=== PATIENT | male | born 1935 | race Two or more races ===

== ENCOUNTER 2019-02-10 17:26 | Emergency (ER) | payer MEDICARE ==
[~2019-02-10] VITALS: Ht 188 cm; Wt 85.3 kg
[~2019-02-10 17:26] MED LIST: ACET-868 PO; AMLO2.5T2 PO; CALC625T PO; CITA20TA19 PO; CLOP75TA15 PO; DIGO0.12 PO; MIRT15TA3 PO; OMEG-9; PANT40SU PO; TOLT1TAB2 PO; UBID200C35 PO
--- NOTE | 2019-02-10 17:40 | NUR ---
[facility]AN [facility] FOR [facility]/V; PT AAOX2-3, PT ON MONITOR, VSS, NAD NOTED, PT TO BED 6, PENDING MD TAYLOR
[2019-02-10] MEDS ORDERED: ONDANSETRON HCL/PF 4 MG/2 ML VIAL IVP ONE (18:00)
[2019-02-10] MEDS ORDERED: ONDANSETRON HCL/PF 4 MG/2 ML VIAL ONE (18:00)
[2019-02-10] MEDS ORDERED: IV NS 0.9% 1,000 ML BAG IV ONE (18:00)
[2019-02-10 18:18] LABS: BASOPHILS % (AUTO) 0.2 % (0.0-2.0); EOSINOPHILS % (AUTO) 0.9 % (0.0-6.0); HEMATOCRIT 46 % (39-51); HEMOGLOBIN 15.2 g/dL (13.5-17.5); LYMPHOCYTES # (AUTO) 1.3 /CMM (0.8-4.8); LYMPHOCYTES % (AUTO) 7.6 % (20.0-44.0); MEAN CORPUSCULAR HGB CONC 33 g/dl (31.0-36.0); MEAN CORPUSCULAR VOLUME 94 fL (80-96); MONOCYTES % (AUTO) 5.8 % (2.0-12.0); NEUTROPHILS # (AUTO) 14.7 /CMM (1.8-8.9); NEUTROPHILS % (AUTO) 85.5 % (43.0-81.0); PLATELET COUNT (AUTO) 306 /CMM (150-450); RED BLOOD CELL COUNT(AUTO) 4.91 MIL/uL (4.5-6.0); WHITE BLOOD COUNT (AUTO) 17.2 K/uL (4.3-11.0)
[2019-02-10 18:30] LABS: CALCIUM, SERUM 9.7 mg/dL (8.5-10.1); CARBON DIOXIDE 24 mmol/L (21-32); CHLORIDE 102 mmol/L (98-107); CREATININE 1.9 mg/dL (0.6-1.3); GLUCOSE 178 mg/dL (74-106); POTASSIUM 4.3 mmol/L (3.5-5.1); SODIUM SERUM 137 mmol/L (136-145); UREA NITROGEN, BLOOD 23 mg/dL (7-18)
[2019-02-10 18:38] LABS: ALANINE AMINOTRANSFERASE 24 U/L (12-78); ALBUMIN 3.5 g/dL (3.4-5.0); ALKALINE PHOSPHATASE 192 U/L (46-116); ASPARTATE AMINOTRANSFERASE 28 U/L (15-37); BILIRUBIN,DIRECT 0.1 mg/dL (0.0-0.2); BILIRUBIN,TOTAL 0.3 mg/dL (0.2-1.0); LIPASE 97 U/L (73-393); TOTAL PROTEIN, SERUM 8.3 g/dL (6.4-8.2)
[2019-02-10] MEDS ORDERED: LISI-607 PO (18:45)
[2019-02-10] MEDS ORDERED: TRAZ-182 PO (18:45)
--- NOTE | 2019-02-10 19:16 | NUR ---
MARIIA () CONTACT INFORMATION:
--- NOTE | 2019-02-10 19:30 | NUR ---
PT UNABLE TO GIVE URINE SAMPLE AT THIS TIME
--- NOTE | 2019-02-10 19:40 | NUR ---
URINE COLLECTED AND SENT TO LAB
[2019-02-10 19:56] LABS: APPEARANCE,URINE Clear (CLEAR); BILIRUBIN,URINE Negative (NEGATIVE); BLOOD, URINE Large Ery/uL (NEGATIVE); COLOR,URINE Yellow (YELLOW); KETONES,URINE Negative (NEGATIVE); LEUKOCYTE ESTERASE ,URINE Trace (NEGATIVE); NITRITE, URINE Negative (NEGATIVE); PH,URINE 5.5 (5.0-8.0); PROTEIN,URINE 30 mg/dl (NEGATIVE); UGLUCOSE >=1000 mg/dL (NEGATIVE); UROBILINOGEN,URINE 0.2 EU/dL (0.2)
[2019-02-10 20:12] LABS: BACTERIA,URINE Few /HPF (None Seen); RBC,URINE 21-50 /HPF (0-2); SQUAMOUS EPITHELIAL CELL,UR Few /HPF (None Seen)
--- NOTE | 2019-02-10 20:52 | NUR ---
PT TO RETURN TO [facility] CALLED [facility] FOR TRANSPORTATION. ETA: [phone], TRIP NUMBER: [id number]
--- NOTE | 2019-02-10 20:56 | NUR ---
REPORT GIVEN TO HERSON AT [facility] FOR REPORT
--- NOTE | 2019-02-10 21:27 | NUR ---
PT TRANSPORTED BACK TO [facility], PT LEFT IN STABLE CONDITION, [facility] NAD NOTED, PT LEFT VIA PRIVATE AMBULACNE, REPORT GIVEN TO STAFF.
[2019-02-10 21:28] VITALS: BP 149/70
== END 2019-02-10 21:29 | disposition home or self-care (01) ==
LOC: ER 17:26
DX: R11.2 Nausea with vomiting, unspecified (principal); R10.13 Epigastric pain; I10 Essential (primary) hypertension; F03.90 Unspecified dementia, unspecified severity, without behavioral disturbance, psychotic disturbance, mood disturbance, and anxiety; Z86.73 Personal history of transient ischemic attack (TIA), and cerebral infarction without residual deficits; Z79.899 Other long term (current) drug therapy
CPT/HCPCS: 36415; 74176; 80048; 80076; 81001; 83690; 85025; 96361; 96374; 99284; J2405; J7030; 81000-TC

== ENCOUNTER 2019-08-07 13:19 | Inpatient (IN) | payer MEDICARE ==
[~2019-08-07] VITALS: Ht 188 cm; Wt 81.6 kg
[~2019-08-07 13:19] MED LIST changes: -AMLO2.5T2 PO; -CALC625T PO; +LISI-607 PO; -OMEG-9; -PANT40SU PO; -TOLT1TAB2 PO; +TRAZ-182 PO; -UBID200C35 PO
--- NOTE | 2019-08-07 13:28 | NUR ---
PATIENT BIBRA FROM [facility], C/O ABDOMINAL PAIN AND VOMITING STARTED THIS AM. PATIENT AWAKE. A/O X1. NO ACUTE DISTRESS. WILL CONTINUE TO MONITOR ACCORDINGLY
[2019-08-07 13:41] LABS: BASOPHILS % (AUTO) 0.4 % (0.0-2.0); EOSINOPHILS % (AUTO) 1.1 % (0.0-6.0); HEMATOCRIT 39 % (39-51); HEMOGLOBIN 12.8 g/dL (13.5-17.5); LYMPHOCYTES # (AUTO) 1.3 /CMM (0.8-4.8); LYMPHOCYTES % (AUTO) 14.9 % (20.0-44.0); MEAN CORPUSCULAR HGB CONC 33 g/dl (31.0-36.0); MEAN CORPUSCULAR VOLUME 93 fL (80-96); MONOCYTES # (AUTO) 0.5 /CMM (0.1-1.30); MONOCYTES % (AUTO) 5.9 % (2.0-12.0); NEUTROPHILS # (AUTO) 6.9 /CMM (1.8-8.9); NEUTROPHILS % (AUTO) 77.7 % (43.0-81.0); PLATELET COUNT (AUTO) 472 /CMM (150-450); RED BLOOD CELL COUNT(AUTO) 4.15 MIL/uL (4.5-6.0); WHITE BLOOD COUNT (AUTO) 8.9 K/uL (4.3-11.0)
[2019-08-07] MEDS ORDERED: UBID100C13 PO (13:55)
[2019-08-07] MEDS ORDERED: CANA100T PO (13:55)
[2019-08-07] MEDS ORDERED: EMPA10TA PO (13:55)
[2019-08-07] MEDS ORDERED: OMEG1CAP PO (13:55)
[2019-08-07] MEDS ORDERED: CLOT15CR63 TP (13:55)
[2019-08-07] MEDS ORDERED: SENN-168 PO (13:55)
[2019-08-07] MEDS ORDERED: CALC625T PO (13:55)
[2019-08-07 13:59] LABS: CALCIUM, SERUM 9.7 mg/dL (8.5-10.1); CARBON DIOXIDE 22 mmol/L (21-32); CHLORIDE 97 mmol/L (98-107); CREATININE 2.9 mg/dL (0.6-1.3); GLUCOSE 199 mg/dL (74-106); POTASSIUM 5.2 mmol/L (3.5-5.1); SODIUM SERUM 132 mmol/L (136-145); UREA NITROGEN, BLOOD 64 mg/dL (7-18)
[2019-08-07] MEDS ORDERED: IV NS 0.9% 1,000 ML BAG IV ONE ×3 (14:00→14:30)
[2019-08-07] MEDS ORDERED: ACETAMINOPHEN ES 500 MG TABLET PO ONE (14:00)
[2019-08-07] MEDS ORDERED: ACETAMINOPHEN ES 500 MG TABLET ONE (14:03)
[2019-08-07 14:13] LABS: ALANINE AMINOTRANSFERASE 35 U/L (12-78); ALBUMIN 2.9 g/dL (3.4-5.0); ALKALINE PHOSPHATASE 136 U/L (46-116); ASPARTATE AMINOTRANSFERASE 28 U/L (15-37); BILIRUBIN,DIRECT 0.1 mg/dL (0.0-0.2); BILIRUBIN,TOTAL 0.3 mg/dL (0.2-1.0); LIPASE 179 U/L (73-393); TOTAL PROTEIN, SERUM 8.8 g/dL (6.4-8.2)
[2019-08-07 14:26] LABS: APPEARANCE,URINE Cloudy (CLEAR); BILIRUBIN,URINE Negative (NEGATIVE); BLOOD, URINE Large Ery/uL (NEGATIVE); COLOR,URINE Amber (YELLOW); KETONES,URINE Negative (NEGATIVE); LEUKOCYTE ESTERASE ,URINE Large (NEGATIVE); NITRITE, URINE Negative (NEGATIVE); PROTEIN,URINE >=300 mg/dl (NEGATIVE); UGLUCOSE 500 MG/DL mg/dL (NEGATIVE); UROBILINOGEN,URINE 0.2 EU/dL (0.2)
[2019-08-07] MEDS ORDERED: IV NS 0.9% 500 ML BAG IV ONE (14:30)
[2019-08-07 14:50] LABS: BACTERIA,URINE Few /HPF (None Seen); RBC,URINE TOO NUMEROUS TO COUN /HPF (0-2); SQUAMOUS EPITHELIAL CELL,UR Few /HPF (None Seen); WBC,URINE 81-100 /HPF (0-3)
--- NOTE | 2019-08-07 15:10 | NUR ---
CALLED NURSING SUP FOR TELE BED.
--- NOTE | 2019-08-07 15:13 | NUR ---
VERIFIED TOTAL IV NS ORDER WITH DR RAMOS. VERBALIZED TOTAL NS ONLY 2500cc. NOTED AND CARRIED OUT. WILL CONTINUE TO MONITOR
[2019-08-07] MEDS ORDERED: PIPERACILLIN /TAZOBACTAM 3.375 G in IV D5W 50 ML IV ONE (15:30)
--- NOTE | 2019-08-07 15:37 | NUR ---
NURSING SUP GAVE [phone].
[2019-08-07] MEDS ORDERED: IV NS 0.9% 1,000 ML IV PRN (15:38)
[2019-08-07] MEDS ORDERED: TEMAZEPAM 15 MG CAPSULE PO PRN (16:00)
[2019-08-07] MEDS ORDERED: HYDROCODONE/APAP 5/325MG 1 EACH TABLET PO PRN (16:00)
[2019-08-07] MEDS ORDERED: IBUPROFEN 600 MG TABLET PO ONE (16:00)
[2019-08-07] MEDS ORDERED: MORPHINE SULFATE INJ 2 MG/ML DISP.SYRIN IV PRN (16:00)
[2019-08-07] MEDS ORDERED: DEXTROSE 50%-WATER 50 ML DISP.SYRIN IV PRN (16:00)
[2019-08-07] MEDS ORDERED: PANTOPRAZOLE 40 MG VIAL IV ONE (16:00)
[2019-08-07] MEDS ORDERED: ACETAMINOPHEN 325 MG TABLET PO PRN (16:00)
[2019-08-07] MEDS ORDERED: ONDANSETRON HCL/PF 4 MG/2 ML VIAL IVP PRN (16:00)
--- NOTE | 2019-08-07 16:26 | NUR ---
REPORT GIVEN TO ELIANE FITZPATRICK FOR [facility]
--- NOTE | 2019-08-07 16:38 | NUR ---
PATIENT TRANSFERRED TO [facility] VIA ACLS PROTOCOL. RECEIVING RN AT BEDSIDE. PATIENT TOLERATED WELL. NO ACUTE DISTRESS. NO FACIAL GRIMACE NOTED.
--- NOTE | 2019-08-07 16:55 | NUR ---
RN NOTES Patient received on room air, no sob noted, patient denies pain at this time. No wounds noted at this time. L FA 18 gauge H/L. Bed at the lowest setting, call light within reach, side rails up x2.
[2019-08-07 17:00] VITALS: BP 144/87
[2019-08-07] MEDS: BLOOD SUGAR DIAGNOSTIC 1 EACH STRIP IN SCH ×2 (17:10→22:32)
--- NOTE | 2019-08-07 18:53 | NUR ---
RN CLOSING NOTES Patient remains on room air, no sob noted, patient shows no s/s of pain at this time. Patient on tele at this time. Cardiac diet with 18 FA IV NS@ 100 ml pre hour. urine cx and bloox cx pending. Wilson inserted and is draining well. Bed at the lowest setting, call light within reach, side rails up x2. Will give report to NOC RN for [facility] bedside.
[2019-08-07] MEDS: INSULIN REGULAR, HUMAN 100 UNIT/ML 3 ML VIAL SQ PRN ×2 (19:11→19:19)
--- NOTE | 2019-08-07 19:55 | NUR ---
PRODUCTION GRIP NOTES RECEIVED PATIENT AWAKE IN BED, ALERT ORIENTEDX3, SAFETY MEASURES INPLACE, ASPIRATION PRECAUTION OBSERVED, CALL LIGHT WITHIN EASY REACH, IV ACCESS INTACT AND PATENT IV FLUID INFUSING WELL, ALL NEEDS ANTICIPATED, WILL MONITOR ACCORDINGLY.
[2019-08-07 20:00] VITALS: BP 103/65
[2019-08-07] MEDS ORDERED: PIPERACILLIN /TAZOBACTAM 2.25 G in IV D5W 50 ML IV SCH (21:00)
[2019-08-07] MEDS: MIRTAZAPINE SOLUTAB 15 MG/UDTABLET TAB.RAPDIS PO SCH (22:31)
[2019-08-07] MEDS: TRAZODONE 50 MG TABLET PO SCH (22:31)
[2019-08-08] VITALS (7 sets, daily range): BP systolic 94–121; BP diastolic 57–76
[2019-08-08] MEDS ORDERED: PIPERACILLIN /TAZOBACTAM 3.375 G in IV D5W 100 ML IV SCH ×2
[2019-08-08] MEDS: PIPERACILLIN /TAZOBACTAM 3.375 G in IV D5W 100 ML IV SCH ×3 (00:39→17:16)
--- NOTE | 2019-08-08 06:21 | NUR ---
MICROARRAY SPECIALIST NOTES ALL NEEDS ATTENDED AND MET, SAFETY MEASURES IN PLACE, ASPIRATION PRECAUTION EMPHASIZED,IV ACCESS INTACT AND PATENT, GIL INTACT DRAINING WELL. YELLOW URINE OUTPUT NOTED, WILL ENDORSE TO AM NURSE FOR CONTINUITY OF CARE;.
[2019-08-08 06:53] LABS: BASOPHILS % (AUTO) 0.5 % (0.0-2.0); EOSINOPHILS % (AUTO) 1.4 % (0.0-6.0); HEMATOCRIT 31 % (39-51); HEMOGLOBIN 10.6 g/dL (13.5-17.5); LYMPHOCYTES # (AUTO) 1.6 /CMM (0.8-4.8); LYMPHOCYTES % (AUTO) 20.7 % (20.0-44.0); MEAN CORPUSCULAR HGB CONC 34 g/dl (31.0-36.0); MEAN CORPUSCULAR VOLUME 93 fL (80-96); MONOCYTES # (AUTO) 0.6 /CMM (0.1-1.30); MONOCYTES % (AUTO) 7.7 % (2.0-12.0); NEUTROPHILS # (AUTO) 5.5 /CMM (1.8-8.9); NEUTROPHILS % (AUTO) 69.7 % (43.0-81.0); PLATELET COUNT (AUTO) 341 /CMM (150-450); RED BLOOD CELL COUNT(AUTO) 3.37 MIL/uL (4.5-6.0); WHITE BLOOD COUNT (AUTO) 7.9 K/uL (4.3-11.0)
[2019-08-08 07:06] LABS: ALANINE AMINOTRANSFERASE 50 U/L (12-78); ALBUMIN 2.2 g/dL (3.4-5.0); ALKALINE PHOSPHATASE 118 U/L (46-116); ASPARTATE AMINOTRANSFERASE 52 U/L (15-37); BILIRUBIN,TOTAL 0.4 mg/dL (0.2-1.0); CALCIUM, SERUM 8.6 mg/dL (8.5-10.1); CARBON DIOXIDE 21 mmol/L (21-32); CHLORIDE 106 mmol/L (98-107); CREATININE 2.4 mg/dL (0.6-1.3); GLUCOSE 123 mg/dL (74-106); MAGNESIUM 2.4 mg/dL (1.8-2.4); PHOSPHORUS 3.4 mg/dL (2.5-4.9); POTASSIUM 4.8 mmol/L (3.5-5.1); SODIUM SERUM 137 mmol/L (136-145); TOTAL PROTEIN, SERUM 6.8 g/dL (6.4-8.2); UREA NITROGEN, BLOOD 53 mg/dL (7-18)
[2019-08-08] MEDS: BLOOD SUGAR DIAGNOSTIC 1 EACH STRIP IN SCH ×4 (07:11→21:17)
[2019-08-08 07:30] LABS: CHOLESTEROL 127 mg/dL (<200); CREATINE KINASE, TOTAL 26 U/L (39-308); HDL CHOLESTEROL 29 mg/dL (40-60); LDL 78 mg/dL (0-99); TRIGLYCERIDES 121 mg/dL (30-150)
--- NOTE | 2019-08-08 08:00 | NUR ---
RN NOTES RECEIVED PATIENT IN THE BED A/O X2/3, PATIENT HAS NO ACUTE RESPIRATORY DISTRESS,UNLABORED BREATHING. V/S STABLE , ADMINISTERED SCHEDULED MEDICATION, INFUSING ZOSYN 25 ML/HR ON LEFT FA INTACT, F/C DRAINING FREELY BLOOD ON IT AND SOME CLOTHES. PATIENT REFUSED PAIN, TURN AND REPOSTION IN THE BED SELF. SEEN HOSPITALIST, NO NEW ORDERS. CALL LIGHT WITHIN TO REACH. SAFETY PRECAUTION MAINTAINED ALL THE TIME.
[2019-08-08] MEDS: CITALOPRAM HYDROBROMIDE 20 MG TABLET PO SCH (08:44)
[2019-08-08] MEDS: CLOPIDOGREL BISULFATE 75 MG TABLET PO SCH (08:45)
[2019-08-08] MEDS: SENNOSIDES 8.6 MG TABLET PO SCH (08:45)
[2019-08-08] MEDS: CALCIUM POLYCARBOPHIL 625 MG TABLET PO SCH (12:15)
[2019-08-08] MEDS: INSULIN REGULAR, HUMAN 100 UNIT/ML 3 ML VIAL SQ PRN (12:38)
--- NOTE | 2019-08-08 12:46 | NUR ---
MS RN NOTES BS-146 MG/DL ADMINISTERED 2 UNITS OF INSULIN, INFUSING ZOSYN 25 ML/HR ON LEFT FA INTACT, PATIENT REFUSED PAIN, , EATING LUNCH. F/C DRAINING WITH BLOODY OUTCOME. SEEN PATIENT BY SLIVER CUTTER Dr TINAJERO, AND HOSPITALIST PERFECTO CONKLIN. ASSIST PATIENT TURN AND REPOSTION Q 2 HR. CALL LIGHT WITHIN TO REACH. SAFETY PRECAUTION MAINTAINED ALL TH TIME.
--- NOTE | 2019-08-08 13:03 | NUR ---
RN NOTES PER HOSPITALIST D/C TELE TO MED SURGE.
--- NOTE | 2019-08-08 18:30 | NUR ---
rn notes patient stable eating, bs-110 mg/dl, no coverage given, v/s taken bp-98/57, p-69, patient refused pain, administered scheduled medication, needs attended and anticipated. infusing Zosyn 25 ml/hr on left FA.call light within to reach. endorsed oncoming nurse follow plan of care.
--- NOTE | 2019-08-08 19:41 | NUR ---
MS RN OPENING NOTES PATIENT AWAKE AND RESTING IN BED, LOW CONDE'S POSITION. ALERT & ORIENTED X 3. IV ON LEFT AC, SIZE 18, INTACT AND PATENT WITH ZOSYN RUNNING AT 25 ML/HR. IV ON RIGHT AC, SIZE 20, INTACT & PATENT, SL. URINE IN GIL CATH HAS BLOOD CLOTS PRESENT, CURRENT OUTPUT 250 ML. NO S/S OF ACUTE RESPIRATORY DISTRESS OR SOB. NO COMPLAINTS OF PAIN AT THIS TIME. SKIN IS DRY AND INTACT. BED SET IN LOWEST POSITION & LOCKED. CALL LIGHT WITHIN REACH. WILL CONTINUE TO MONITOR.
--- NOTE | 2019-08-08 20:07 | NUR ---
BUSINESS OFFICE MANAGER OPENING NOTES PATIENT AWAKE AND RESTING IN BED, SEMI CONDE'S POSITION. PATIENT IS ALERT & ORIENTED X 4. PATIENT ABLE TO AMBULATE TO BATHROOM INDEPENDENTLY. NO COMPLAINTS OF DIZZINESS OR LIGHT HEADEDNESS. TELE MONITORING READING IS SINUS RHYTHM, HR: 85. NO S/S OF ACUTE RESPIRATORY DISTRESS OR SOB. NO COMPLAINTS OF PAIN AT THIS TIME. IV ON RIGHT AC, SIZE 18, INTACT & PATENT WITH D51/2 NS AT 125 ML/HR. BED SET IN LOWEST POSITION & LOCKED. CALL LIGHT WITHIN REACH. WILL CONTINUE TO MONITOR. Addendum: 08/08/19 at 2226 by NADER ROMERO RN WRONG PATIENT
[2019-08-08] MEDS: TRAZODONE 50 MG TABLET PO SCH (21:18)
[2019-08-08] MEDS: MIRTAZAPINE SOLUTAB 15 MG/UDTABLET TAB.RAPDIS PO SCH (21:18)
[2019-08-09] MEDS: BLOOD SUGAR DIAGNOSTIC 1 EACH STRIP IN SCH ×4 (06:35→21:30)
--- NOTE | 2019-08-09 06:43 | NUR ---
MS RN CLOSING NOTES PATIENT SLEEPING IN BED, SUPINE POSITION. PATIENT ON ROOM AIR. NO S/S OF ACUTE RESPIRATORY DISTRESS, SOB, NO S/S OF PAIN OR DISCOMFORT AT THIS TIME. BLOOD CLOTS PRESENT IN GIL CATH, CURRENT OUTPUT IS 40 CC. IV ON LEFT AC RUNNING NS AT 100 ML/HR. BED LOCKED AND SET IN LOWEST POSITION. CALL LIGHT WITHIN REACH. WILL ENDORSE TO DAY SHIFT TO FOLLOW PLAN OF CARE.
[2019-08-09 06:53] LABS: BASOPHILS # (AUTO) 0.1 /CMM (0.0-0.2); BASOPHILS % (AUTO) 1.2 % (0.0-2.0); EOSINOPHILS % (AUTO) 4.4 % (0.0-6.0); HEMATOCRIT 32 % (39-51); HEMOGLOBIN 10.5 g/dL (13.5-17.5); LYMPHOCYTES # (AUTO) 1.7 /CMM (0.8-4.8); LYMPHOCYTES % (AUTO) 28.8 % (20.0-44.0); MEAN CORPUSCULAR HGB CONC 33 g/dl (31.0-36.0); MEAN CORPUSCULAR VOLUME 94 fL (80-96); MONOCYTES # (AUTO) 0.4 /CMM (0.1-1.30); NEUTROPHILS # (AUTO) 3.5 /CMM (1.8-8.9); NEUTROPHILS % (AUTO) 58.6 % (43.0-81.0); PLATELET COUNT (AUTO) 327 /CMM (150-450); RED BLOOD CELL COUNT(AUTO) 3.38 MIL/uL (4.5-6.0)
[2019-08-09 07:07] LABS: CALCIUM, SERUM 8.4 mg/dL (8.5-10.1); CARBON DIOXIDE 23 mmol/L (21-32); CHLORIDE 106 mmol/L (98-107); CREATININE 2.2 mg/dL (0.6-1.3); GLUCOSE 106 mg/dL (74-106); POTASSIUM 4.7 mmol/L (3.5-5.1); SODIUM SERUM 137 mmol/L (136-145); UREA NITROGEN, BLOOD 37 mg/dL (7-18)
[2019-08-09 08:00] VITALS: BP 112/71
[2019-08-09] MEDS: SENNOSIDES 8.6 MG TABLET PO SCH (08:58)
[2019-08-09] MEDS: CITALOPRAM HYDROBROMIDE 20 MG TABLET PO SCH (08:58)
[2019-08-09] MEDS: CALCIUM POLYCARBOPHIL 625 MG TABLET PO SCH (08:58)
[2019-08-09] MEDS: CLOPIDOGREL BISULFATE 75 MG TABLET PO SCH (08:58)
[2019-08-09] MEDS: PIPERACILLIN /TAZOBACTAM 3.375 G in IV D5W 100 ML IV SCH ×5 (08:59→23:54)
--- NOTE | 2019-08-09 09:40 | NUR ---
alert, oriented, and slow but clear speech, " from a boarding care which i forgot the name". Looked comfortable in bed, appetite for breakfast 100%, fed self. Continues to get ivf . Noticeable melissa colored urine, which a sample obtained right now.
[2019-08-09] MEDS ORDERED: IV NS 0.9% 1,000 ML IV PRN (11:21)
[2019-08-09] MEDS: INSULIN REGULAR, HUMAN 100 UNIT/ML 3 ML VIAL SQ PRN ×2 (11:50→16:36)
[2019-08-09 14:10] LABS: CREATININE, URINE 37.6 MG/DL (30.0-125.0); URINE TOTAL PROTEIN 55.4 mg/dL (0-11.9)
[2019-08-09 14:40] LABS: APPEARANCE,URINE SL CLOUDY (CLEAR); BILIRUBIN,URINE NEGATIVE (NEGATIVE); BLOOD, URINE LARGE Ery/uL (NEGATIVE); COLOR,URINE YELLOW (YELLOW); KETONES,URINE NEGATIVE (NEGATIVE); LEUKOCYTE ESTERASE ,URINE TRACE (NEGATIVE); NITRITE, URINE NEGATIVE (NEGATIVE); PH,URINE 5.5 (5.0-8.0); PROTEIN,URINE 30 mg/dl (NEGATIVE); UGLUCOSE 500 MG/DL mg/dL (NEGATIVE); UROBILINOGEN,URINE 0.2 EU/dL (0.2)
[2019-08-09 14:58] LABS: BACTERIA,URINE 2+ /HPF (None Seen); RBC,URINE TOO NUMEROUS TO COUN /HPF (0-2); SQUAMOUS EPITHELIAL CELL,UR 0-2 /HPF (None Seen)
[2019-08-09] MEDS: FINASTERIDE (5 MG) 5 MG TABLET PO SCH (15:33)
[2019-08-09 15:46] LABS: EOSINOPHIL,URINE Rare
[2019-08-09 16:00] VITALS: BP 114/61
--- NOTE | 2019-08-09 19:45 | NUR ---
MS RN OPENING NOTES PATIENT AWAKE AND RESTING IN BED, ELVIA-CONDE'S POSITION. ALERT & ORIENTED X 2. ON ROOM AIR. GIL CATH INTACT & PATENT, CLEAR AND MARTIN URINE PRESENT, 350 CC. IV LEFT AC, SIZE 18, INTACT & PATENT, NS RUNNING AT 75 ML/HR. NO S/S OF ACUTE RESPIRATORY DISTRESS, SOB. NO COMPLAINTS OF PAIN/DISCOMFORT. CALL LIGHT WITHIN REACH. WILL CONTINUE TO MONITOR.
[2019-08-09 20:00] VITALS: BP 103/60
[2019-08-09] MEDS: TRAZODONE 50 MG TABLET PO SCH (21:15)
[2019-08-09] MEDS: MIRTAZAPINE SOLUTAB 15 MG/UDTABLET TAB.RAPDIS PO SCH (21:15)
[2019-08-09] MEDS ORDERED: TAMSULOSIN 0.4 MG CAP.SR.24H PO SCH (22:00)
--- NOTE | 2019-08-10 06:46 | NUR ---
MS RN CLOSING NOTES PATIENT AWAKE AND RESTING IN BED, SUPINE POSITION, EASY TO AWAKEN. ALERT & ORIENTED X 2. ON ROOM AIR. IV ON LEFT AC, SIZE 18, INTACT & PATENT WITH NS RUNNING AT 75 ML/HR. GIL CATH PRESENT, INTACT & PATENT, OUTPUT 250 CC, COLOR IS MARTIN WITH A TINGE OF BLOOD. NO S/S OF ACUTE RESPIRATORY DISTRESS. NO COMPLAINTS OF PAIN AT THIS TIME. BED SET IN LOWEST POSITION & LOCKED. SIDE RAILS UP X 2. CALL LIGHT WITHIN REACH. WILL ENDORSE TO DAY SHIFT TO FOLLOW PLAN OF CARE.
[2019-08-10 07:09] LABS: CALCIUM, SERUM 8.4 mg/dL (8.5-10.1); CARBON DIOXIDE 23 mmol/L (21-32); CHLORIDE 108 mmol/L (98-107); CREATININE 1.9 mg/dL (0.6-1.3); GLUCOSE 113 mg/dL (74-106); POTASSIUM 4.5 mmol/L (3.5-5.1); SODIUM SERUM 138 mmol/L (136-145); UREA NITROGEN, BLOOD 30 mg/dL (7-18)
[2019-08-10] MEDS: BLOOD SUGAR DIAGNOSTIC 1 EACH STRIP IN SCH ×2 (07:26→12:21)
--- NOTE | 2019-08-10 07:39 | NUR ---
RN OPENING NOTES Patient received on room air,no sob ntoed, patient remains a/o x2 at this time. Wilson cath present and is draining with non bloody fluids. Patient remaisn with L ac 18 and R ac 20 S/L. NS 75 ml per hour. Bed at the lowest setting, call light within reach, side rails up x2.
[2019-08-10 08:00] VITALS: BP 111/56
[2019-08-10] MEDS: CLOPIDOGREL BISULFATE 75 MG TABLET PO SCH (08:12)
[2019-08-10] MEDS: SENNOSIDES 8.6 MG TABLET PO SCH (08:12)
[2019-08-10] MEDS: FINASTERIDE (5 MG) 5 MG TABLET PO SCH (08:12)
[2019-08-10] MEDS: CITALOPRAM HYDROBROMIDE 20 MG TABLET PO SCH (08:12)
[2019-08-10] MEDS: PIPERACILLIN /TAZOBACTAM 3.375 G in IV D5W 100 ML IV SCH (08:13)
[2019-08-10] MEDS: CALCIUM POLYCARBOPHIL 625 MG TABLET PO SCH (08:14)
[2019-08-10] MEDS ORDERED: CEPH500C2 PO (10:23)
[2019-08-10] MEDS ORDERED: TAMS-12 PO (10:23)
[2019-08-10] MEDS ORDERED: FINA5TAB11 PO (10:23)
[2019-08-11 07:59] LABS: *SPE A/G RATIO 0.6 (0.7-1.7); *SPE ALBUMIN 2.3 g/dL (2.9-4.4); *SPE ALPHA-1-GLOBULIN 0.3 g/dL (0.0-0.4); *SPE BETA GLOBULIN 0.9 g/dL (0.7-1.3); *SPE GLOBULIN, TOTAL 3.8 g/dL (2.2-3.9); *SPE M-SPIKE Not Observed g/dL (Not Observed); *SPEGAMMA GLOBULIN 1.5 g/dL (0.4-1.8)
[2019-08-11 14:06] LABS: PTH, INTACT 73 pg/mL (15-65)
== END 2019-08-10 15:05 | DRG 871 ==
LOC: ER 13:21 → TELE 15:46 → MED 08-08 10:26
PROVIDERS: ADMIT Nurse Practitioner Acute Care; ATTEND Nurse Practitioner Acute Care
DX: A41.9 Sepsis, unspecified organism (principal); G92 Toxic encephalopathy; N17.0 Acute kidney failure with tubular necrosis; E87.1 Hypo-osmolality and hyponatremia; E87.2 Acidosis; N13.6 Pyonephrosis; E86.0 Dehydration; E86.1 Hypovolemia; E87.5 Hyperkalemia; F03.90 Unspecified dementia, unspecified severity, without behavioral disturbance, psychotic disturbance, mood disturbance, and anxiety; I10 Essential (primary) hypertension; F32.9 Major depressive disorder, single episode, unspecified; I25.10 Atherosclerotic heart disease of native coronary artery without angina pectoris; G47.00 Insomnia, unspecified; E11.9 Type 2 diabetes mellitus without complications; K59.00 Constipation, unspecified; K52.9 Noninfective gastroenteritis and colitis, unspecified; Z86.73 Personal history of transient ischemic attack (TIA), and cerebral infarction without residual deficits; N30.90 Cystitis, unspecified without hematuria
CPT/HCPCS: 36415; 71045-TC; 80048-TC; 80053-TC; 80061-TC; 80076-TC; 81000-TC; 82550-TC; 82570-TC; 82962-TC; 83605-TC; 83690-TC; 83735-TC; 83970; 84100-TC; 84155; 84155-TC; 84165; 84300-TC; 84484-TC; 85025-TC; 85730-TC; 87040-TC; 87081-TC; 87086-TC; 97110-TC; 97116-TC; 97530-TC; G0378; J1815; J2543; J7030; J7040; J7060